=== PATIENT | female | born 1935 | race Caucasian/White ===

== ENCOUNTER → 2017-04-19 | Outpatient (CLI) | payer OTHER, MEDICARE | LOC: CIMAGING 14:46 | DX: Z12.31 Encounter for screening mammogram for malignant neoplasm of breast (principal); Z85.3 Personal history of malignant neoplasm of breast | CPT/HCPCS: G0202 ==

== ENCOUNTER → 2017-06-27 | Outpatient (CLI) | payer OTHER, MEDICARE | LOC: BRMIMAGING 08:13 | PROVIDERS: ATTEND Family Medicine | DX: Z13.820 Encounter for screening for osteoporosis (principal); M54.9 Dorsalgia, unspecified; Z78.0 Asymptomatic menopausal state ==

== ENCOUNTER → 2018-04-20 | Outpatient (CLI) | payer OTHER, MEDICARE | LOC: CIMAGING 10:18 | PROVIDERS: ATTEND Surgery | DX: Z12.31 Encounter for screening mammogram for malignant neoplasm of breast (principal); Z85.3 Personal history of malignant neoplasm of breast ==

== ENCOUNTER → 2018-06-06 | Outpatient (CLI) | payer OTHER, MEDICARE | LOC: CIMAGING 10:15 | PROVIDERS: ATTEND Family Medicine | DX: M47.896 Other spondylosis, lumbar region (principal); M47.897 Other spondylosis, lumbosacral region; I51.7 Cardiomegaly; G89.29 Other chronic pain; Z85.3 Personal history of malignant neoplasm of breast | CPT/HCPCS: 36415-PO; 71046-PO; 72100-PO ==

== ENCOUNTER 2018-11-26 20:06 | Emergency (ER) | payer OTHER, MEDICARE ==
--- NOTE | 2018-11-26 20:35 | EDPHY ---
H & P Stated Complaint: c/o pain under R mid upper back pain - milder on L x 48 hrs Time Seen by Provider: 11/26/18 20:34 HPI/ROS: CHIEF COMPLAINT: Back pain HISTORY OF PRESENT ILLNESS: The patient is an 83 y/o female with a history of breast cancer and hypertension arriving with her complaining of intermittent back pain underneath both scapulas for the last three days. She cannot identify a clear precipitating event. Her pain is worse on the right and worse with movement and deep inspiration. She took Advil for pain the first day , but stopped after an episode of epistaxis. She had more epistaxis last night and this morning. She does not use anticoagulants. She felt chilled today and had a mild cough three days ago. She mentions her right arm has felt weak and painful and she attributed this to rheumatism. She did drop an item today, though she cannot remember further detail about this. She denies fever, paresthesias, urinary symptoms, bowel symptoms, nausea, abdominal pain, diarrhea , sore throat. She is quite anxious that she could be having a heart attack. REVIEW OF SYSTEMS: A ten system review of systems was performed and is negative with the exception of the items mentioned in the HPI. Past medical history: 1. Hypertension 2. Bilateral breast cancer post surgery and radiation - no issues since 1998 3. Hyperlipidemia 4. Gout 5. Lower back pain 6. Shingles vaccination Past surgical history: 1. Bilateral carpal tunnel surgery 2. Bilateral lumpectomy Family history: Brother () had heart surgery age 74. Social history: at bedside. Nonsmoker. No alcohol use. PCP: Dr. Tamika Jay. General Appearance: Alert. Vital signs reviewed. Blood pressure 174/91. Eyes: Pupils equal and round, no conjunctival injection, no discharge. Anicteric. ENT, Mouth: Mucous membranes are moist, no oropharyngeal erythema or edema. Neck: No lymphadenopathy, supple. Respiratory: Lungs are clear to auscultation; no wheezes, rales, or rhonchi. Cardiovascular: Regular rate and rhythm; no murmur, rub, or gallop. Gastrointestinal: Abdomen is soft with [id number] tenderness in the right upper quadrant, no guarding, no masses or organomegaly. Skin: Warm and dry, no rashes on exposed skin, normal color. Back: Mild tenderness low thoracic spine. Tenderness base of rib cage on the right, lateral to spine. No CVAT. Extremities: No lower extremity edema, no calf tenderness or swelling. Neurological: Alert and oriented. Moving all four extremities easily and equally. Cranial nerves II through XII are examined and are intact (visual acuity not tested). Strength is 5 over 5 bilaterally with testing of all major motor groups with exception of 4+/5 strength of the right arm in biceps, triceps, rn document improvement specialist. Sensation is intact to light touch over all 4 extremities. Deep tendon reflexes are 2+ in the biceps and knees bilaterally. [id number] is performed accurately. Psychiatric: Normal affect. - Medical/Surgical History Hx Asthma: No Hx Chronic Respiratory Disease: No Hx Diabetes: No Hx Cardiac Disease: Yes Hx Renal Disease: No Hx Cirrhosis: No Hx Alcoholism: No Hx HIV/AIDS: No Hx Splenectomy or Spleen Trauma: No Other PMH: hypertension, bilat carpal tunnel surg, breast ca - bilat lumpectomy , hyperlipidemia, gout - Social History Smoking Status: Never smoked Constitutional: Initial Vital Signs Temperature (C) 36.4 C 11/26/18 20:22 Heart Rate 92 11/26/18 20:22 Respiratory Rate 18 11/26/18 20:22 Blood Pressure 174/91 H 11/26/18 20:22 O2 Sat (%) 95 11/26/18 20:22 O2 Delivery Mode Room Air Allergies/Adverse Reactions: unk hypertension med Allergy (Uncoded 11/26/18 20:28) Medical Decision Making - Diagnostics Imaging: I viewed and interpreted images myself ED Course/Re-evaluation: This is an 83 y/o female with a history of breast cancer and hypertension who presents with a 3-day history of back pain and possibly right arm weakness and pain. She has mild lower thoracic tenderness and some tenderness lateral to the spine underneath the ribs on the right side. She has a largely nonfocal neuro exam with the exception of slightly reduced strength in her right upper extremity. Suspect musculoskeletal etiology and doubt cardiac cause for symptoms. Plan for IV, labs, EKG, chest x-ray, and symptomatic management. 650mg PO Tylenol ordered. She took an Advil yesterday and had a nose bleed and does not want to take another Advil. The 12 lead EKG was interpreted by myself. Sinus mechanism. See hard copy and/ or "tracemaster" electronic copy for interpretation. POC Troponin is normal. Her pain has improved with the Tylenol. 10:40 p.m. patient now complains of right quadrant pain. She tells me that the pain radiates around her side to the back. When I enter the room she is holding the upper right abdomen. She denies nausea or vomiting. No urinary symptoms. She is tender in the upper right quadrant, no guarding. No significant midepigastric tenderness. No skin rash, no vesicles. Liver functions and lipase ordered to assess gallbladder, along with a right upper quadrant ultrasound. She does have an elevated white blood cell count of over 12,000. Liver functions and lipase are normal. Right upper quadrant ultrasound is negative for signs of cholelithiasis/cholecystitis. Patient re-evaluated at 11:40 PM. She has received Tylenol and 50 mcg of fentanyl. She has been very reluctant to take any opiate pain medications. She continues with right upper quadrant pain that radiates around to her back. I have not found evidence of infection, no pneumonia on CXR. I suspect shingles but see no sign whatsoever of an outbreak--she has had this pain for at least three days. I am not recommending antivirals in this setting--no clear diagnosis of shingles, but clinically suspicious complaint. She has agreed to try Toradol in the ED. I think that she can safely take this medication. This might be merely musculoskeletal pain. No neurologic deficit. 12:45 a.m.. She is feeling better but still has some discomfort. She feels well enough to return home. Differential Diagnosis: Considered a differential diagnosis that includes but is not limited to PE, shingles, cholecystitis, pancreatitis, gastritis, musculoskeletal pain. - Data Points Laboratory Results: Laboratory Results 11/26/18 21:11 11/26/18 21:11 Medications Given: Discontinued Medications Acetaminophen (Tylenol) 650 mg PO EDNOW ONE Stop: 11/26/18 21:05 Last Admin: 11/26/18 21:19 Dose: 650 mg Fentanyl (Sublimaze) 50 mcg IVP EDNOW ONE Stop: 11/26/18 22:50 Last Admin: 11/26/18 22:54 Dose: 50 mcg Ketorolac Tromethamine (Toradol) 15 mg IVP EDNOW ONE Stop: 11/26/18 23:51 Last Admin: 11/27/18 00:12 Dose: 15 mg Miscellaneous Medication (Icy Hot Lidocaine/Menthol 4%/1% Patch) 1 patch TD EDNOW ONE Stop: 11/27/18 00:47 Last Admin: 11/27/18 00:53 Dose: 1 patch Point of Care Test Results: Chemistry 11/26/18 21:22 POC Troponin I 0.00 ng/mL ng/mL (0.00-0.08) Departure - Departure Disposition: Home, Routine, Self-Care Clinical Impression: Flank pain Abdominal pain Qualifiers: Abdominal location: right upper quadrant Qualified Code(s): R10.11 - Right upper quadrant pain Condition: Good Instructions: Acute Abdominal Pain (ED), Flank Pain (ED) Additional Instructions: Adult Pain & Fever Control: We recommend Acetaminophen (Tylenol) and Ibuprofen (Motrin,Advil) for pain and fever control. When fever is high or pain severe, both drugs can be used at the same time, but at different intervals. Please note the time differences. Your dose is: Acetaminophen 650mg every 4 to 6 hours Ibuprofen 400mg every 8 hours with food OR Note: do not take Acetaminophen with Hydrocodone (Vicodin, Lortab) or Oycodone (Percocet). These medications also contain Acetaminophen. No more than 3000mg of Acetaminophen should be taken in 24 hours (for an adult).It is not clear what is causing your pain tonight. I know that you worry about Advil/Motrin causing nose bleeds. I think that you could safely try to take an Advil tomorrow. If you have a nose bleed, apply pressure to your nostril for 20 minutes. I am worried about the possibility of shingles, even though you have had the shingles shot. I do not see any evidence of shingles when I examine you but I want you to look closely at your skin and watch for a bumpy, itchy, painful rash. If you develop a rash you need to be seen again. If you have fever, vomiting, pain with urination, any new or concerning symptoms --please be re-evaluated. Referrals: Tamika Jay MD [Primary Care Provider] - As per Instructions Report Scribed for: Ida Villegas Report Scribed by: Nalini De Anda Date of Report: 11/26/18 Time of Report: 21:38 Physician Review and Approval Statement: 11/26/18 20:35 Portions of this note were transcribed by the director medical science. I, Dr. Ida Villegas, personally performed the history, physical exam, and medical decision- making; and confirmed the accuracy of the information in the transcribed note.
[2018-11-26] MEDS ORDERED: ACETAMINOPHEN 325 MG TAB PO ONE (21:04)
[2018-11-26 21:26] LABS: PLATELET COUNT 167 10^3/uL (150-400)
[2018-11-26] MEDS ORDERED: fentaNYL 100 MCG/2 ML INJ IVP ONE (22:49)
[2018-11-26] MEDS ORDERED: KETOROLAC 30 MG/1 ML SDV IVP ONE (23:50)
[2018-11-27] MEDS ORDERED: LIDOCAINE 4%/MENTHOL 1% PATCH TD ONE (00:46)
--- NOTE | 2018-11-27 00:48 | CPEKG ---
Test Reason : OPEN Blood Pressure : / mmHG Vent. Rate : 081 BPM Atrial Rate : 082 BPM P-R Int : 271 ms QRS Dur : 081 ms QT Int : 383 ms P-R-T Axes : 058 067 028 degrees QTc Int : 445 ms Sinus rhythm Prolonged UT interval Confirmed by Ida Villegas ([id number]) on 11/27/2018 12:47:58 AM Referred By: Confirmed By:Ida Villegas
[2018-11-27 00:55] VITALS: BP 129/61
[2018-11-27] MEDS ORDERED: PATCH REMOVAL 1 EA PATCH TD SCH (21:00)
== END 2018-11-27 00:50 | disposition home or self-care (01) ==
DX: R10.11 Right upper quadrant pain (principal); M54.5 Low back pain; I10 Essential (primary) hypertension; E78.5 Hyperlipidemia, unspecified; M10.9 Gout, unspecified; Z85.3 Personal history of malignant neoplasm of breast
CPT/HCPCS: 71046; 76705; 93005; 96374; 96375; 99285; J1885; J3010; 84484-PO

== ENCOUNTER → 2018-12-10 | Outpatient (CLI) | payer OTHER, MEDICARE | LOC: FIMAGING 07:45 | PROVIDERS: ATTEND Family Medicine | DX: R10.11 Right upper quadrant pain (principal); G24.9 Dystonia, unspecified | CPT/HCPCS: 78227; A9537 ==

== ENCOUNTER → 2019-02-05 | Outpatient (CLI) | payer OTHER, MEDICARE ==
[~2019-02-05] MED LIST: IOPAMIDOL (ISOVUE-300) 100 ML BTL ONE
== END ==
LOC: CIMAGING 11:17
PROVIDERS: ATTEND Surgery
DX: M40.204 Unspecified kyphosis, thoracic region (principal); M48.54XA Collapsed vertebra, not elsewhere classified, thoracic region, initial encounter for fracture; J98.4 Other disorders of lung; Z85.3 Personal history of malignant neoplasm of breast
CPT/HCPCS: 71260; Q9967; 82565-PO